=== PATIENT | male | born 1990 | race Caucasian/White ===

== ENCOUNTER 2018-03-26 15:14 | Emergency (ER) | payer SELFPAY ==
[~2018-03-26 15:14] MED LIST: KET10 PO; TRAM-420 PO
--- NOTE | 2018-03-26 15:22 | ER Report ---
History and Physical Time Seen By MD: 15:21 Hx. of Stated Complaint: PT REPORTS R UPPER DENTAL PAIN FOR 1 MONTH HPI/ROS CHIEF COMPLAINT: Dental pain HISTORY OF PRESENT ILLNESS: This is a 27-year-old male who presents to emergency department for dental pain. Patient states over the last month he's had intermittent right upper molar pain. Patient states he had something similar to this about a year ago was evaluated in the ED, did follow up with [facility] and had some dental work done. Patient states he is now able to afford some dental work however the pain over the last 3 days has increased somewhat that he decided to come in for further evaluation. Patient denies aches, chills, nausea, vomiting, chest pain or shortness of breath. REVIEW OF SYSTEMS: Respiratory: No cough, no dyspnea. Cardiovascular: No chest pain, no palpitations. Gastrointestinal: No vomiting, no abdominal pain. Musculoskeletal: No back pain. Dental: As above. Allergies: Coded Allergies: No Known Drug Allergies (Unverified , 03/26/18) Home Meds Active Scripts Amoxicillin/Pot Clav 875-125 Mg Tab (AUGMENTIN 875-125 TABLET) 1 Each Tablet, 1 TAB PO Q12H for 7 Days, #14 TAB 0 Refills Prov:MIGUEL A GALVEZ MARKET[employer] PROGRAMS SPECIALIST-BC 03/26/18 Discontinued Scripts Tramadol Hcl (TRAMADOL HCL) 50 Mg Tablet, 50-100 MG PO Q8H Y for PAIN, #20 TAB Prov:JOSIE LEW PA-C 06/11/17 Ketorolac Tromethamine (KETOROLAC TROMETHAMINE) 10 Mg Tab, 10 MG PO Q8H Y for PAIN, #15 TAB Prov:JOSIE LEW PA-C 06/11/17 Past Medical/Surgical History Patient has a past medical and surgical history of dental caries. Reviewed Nurses Notes: Yes Constitutional Vital Sign - Last 24 Hours 03/26/18 03/26/18 03/26/18 03/26/18 15:17 15:18 15:29 15:30 Temp 98.9 Pulse 44 55 Resp 16 B/P (MAP) 171/111 (131) 171/111 149/113 (125) Pulse Ox 96 97 O2 Delivery Room Air 03/26/18 03/26/18 03/26/18 15:44 15:59 16:06 Pulse 60 43 B/P (MAP) 148/105 (119) Pulse Ox 100 96 Physical Exam General Appearance: The patient is alert, has no immediate need for airway protection and no current signs of toxicity. Eyes: Pupils equal and round no injection. Dental: Right upper molar in good repair, no obvious signs of decay, no erythema or inflammation of the gingiva. No surrounding lymphadenopathy. Respiratory: Chest is non tender, lungs are clear to auscultation. Cardiac: regular rate and rhythm, no murmurs, clicks or rubs. Gastrointestinal: Abdomen is soft and non tender, no masses, bowel sounds normal. Musculoskeletal: Neck: Neck is supple and non tender. No lymphadenopathy. Extremities have full range of motion and are non tender. Skin: No rashes or lesions. DIFFERENTIAL DIAGNOSIS: After history and physical exam differential diagnosis was considered for dental caries, dental abscess and gingivitis. Medical Decision Making ED Course/Re-evaluation ED Course The patient was admitted to room. A history physical were obtained. Differential diagnoses were considered. The patient was complaining of significant right upper molar pain I did offer him a dental block which he greed to as noted below. The block was successful. After reevaluation the patient was resting comfortably in his bed. I did tell the patient I called in a prescription for Augmentin to the pharmacy he needs to pick this up and start taking the medication as directed. He can take ibuprofen and/or Tylenol as need for the aches and pains. It tell him that he needs to follow-up with his primary care provider and a dentist within the next 2-4 days. Patient was in agreement with this plan of care and discharged home. Procedure: Dental block. A buccal dental block was performed using a 0.25% bupivicaine. The teeth and gingiva were in good repair. The procedure was performed by myself. Decision to Disposition Date: March 26, 2018 Decision to Disposition Time: 16:14 Depart Departure Latest Vital Signs Vital Signs Date Time Temp Pulse Resp B/P (MAP) Pulse Ox O2 Delivery O2 Flow Rate FiO2 03/26/18 16:06 148/105 (119) 03/26/18 15:59 43 96 03/26/18 15:18 98.9 16 Room Air Impression: Primary Impression: Pain, dental Condition: Improved Disposition: HOME OR SELF-CARE New Scripts Amoxicillin/Pot Clav 875-125 Mg Tab (AUGMENTIN 875-125 TABLET) 1 Each Tablet 1 TAB PO Q12H for 7 Days, #14 TAB 0 Refills Prov: MIGUEL A GALVEZ 03/26/18 Patient Instructions: Dental Caries (DC) Additional Instructions: Drink plenty of water. Get plenty of rest. Take the antibiotics as prescribed. You can take [id number] ibuprofen or Tylenol as needed for pain. Follow-up with a dentist within the next 2-7 days. Return to the emergency department for any other concerns or worsening symptoms. MIGUEL A GALVEZ-JOSE March 26, 2018 15:22
[2018-03-26] MEDS ORDERED: ACETAMINOPHEN 500 MG TAB PO ONE (16:00)
[2018-03-26] MEDS ORDERED: AMOX-559 PO (16:01)
[2018-03-26 16:06] VITALS: BP 148/105
== END 2018-03-26 16:15 | disposition home or self-care (01) ==
LOC: ER 15:15
DX: K08.89 Other specified disorders of teeth and supporting structures (principal)
CPT/HCPCS: 99282

== ENCOUNTER 2018-10-30 19:35 | Emergency (ER) | payer SELFPAY ==
[~2018-10-30 19:35] MED LIST changes: +AMOX-559 PO
[2018-10-30 19:38] VITALS: BP 128/104
--- NOTE | 2018-10-30 19:49 | ER Report ---
History and Physical Time Seen By MD: 19:49 Hx. of Stated Complaint: TOP RT MOLAR PAIN. "PRETTY SURE IT'S INFECTED". BROKEN FOR A COUPLE MONTHS. UNABLE TO SEE A DENTIST HPI/ROS CHIEF COMPLAINT: Dental pain HISTORY OF PRESENT ILLNESS: 28-year-old male patient presents to emergency room with complaint and pain. Patient states that he has been having this pain intermittently for months. He states that this been going on since last time he was seen here in the emergency room. Patient states that he believes that his tooth is infected. He states that he was trying to clean it out with a toothpick. He states that while he was doing that that it seemed to go farther into the tooth then it should have. He states he did have significant amounts of pain at that time. Patient states he does have intermittent dental pain which can be very severe. He denies having any fevers, chills, nausea, vomiting or diarrhea. Patient states he's been able to eat and drink without any difficulties. Allergies: Coded Allergies: No Known Drug Allergies (Unverified , 10/30/18) Home Meds Active Scripts Amoxicillin 500 Mg Tab (AMOXICILLIN 500 MG TAB) 500 Mg Tablet, 1 TAB PO Q8H, #30 TAB Prov:MARIANO RAMOS [facility] 10/30/18 Diclofenac Sodium (DICLOFENAC SODIUM) 75 Mg Tablet.dr, 75 MG PO BID, #14 TAB Prov:MARIANO RAMOS [facility] 10/30/18 Discontinued Scripts Amoxicillin/Pot Clav 875-125 Mg Tab (AUGMENTIN 875-125 TABLET) 1 Each Tablet, 1 TAB PO Q12H for 7 Days, #14 TAB 0 Refills Prov:MIGUEL A GALVEZ [facility]- 03/26/18 Past Medical/Surgical History Patient has a past medical history of substance abuse. Patient has a surgical history of tonsillectomy. Reviewed Nurses Notes: Yes Hx Substance Use Disorder: Yes Hx Alcohol Use: No Constitutional Vital Sign - Last 24 Hours 10/30/18 19:38 Temp 97.8 Pulse 100 Resp 18 B/P (MAP) 128/104 Pulse Ox 97 O2 Delivery Room Air Physical Exam General Appearance: The patient is alert, has no immediate need for airway protection and no current signs of toxicity. ENT: Tympanic membranes are pearly-baca, auditory canals are patent, mixed mucous membranes moist. Patient does have significant tooth decay tooth #2 and 3. Respiratory: Chest is non tender, lungs are clear to auscultation. Cardiac: regular rate and rhythm DIFFERENTIAL DIAGNOSIS: After history and physical exam differential diagnosis was considered for cavity, dental infection, abscess. Medical Decision Making ED Course/Re-evaluation ED Course Patient was admitted and examined, history and physical were obtained. The differential diagnoses were considered. On examination lungs are clear, heart is regular in patient has significant decay to tooth #2 and 3. With this going on for months there is a good likelihood that he currently has an infection which is causing the pain to be worse. I do not believe that there is any reason for narcotic pain medication. We will go ahead and start him on antibiotics and have him follow-up with a dentist of his choosing. Patient also needs to see a dentist for evaluation and treatment of cavity whether it's getting the tooth removed or getting the cavity fixed. Patient verbalized understanding and agreement with plan. Decision to Disposition Date: Oct 30, 2018 Decision to Disposition Time: 20:03 Depart Departure Latest Vital Signs Vital Signs Date Time Temp Pulse Resp B/P (MAP) Pulse Ox O2 Delivery O2 Flow Rate FiO2 10/30/18 19:38 97.8 100 18 128/104 97 Room Air Impression: Primary Impression: Pain, dental Condition: Improved Disposition: HOME OR SELF-CARE New Scripts Amoxicillin 500 Mg Tab (AMOXICILLIN 500 MG TAB) 500 Mg Tablet 1 TAB PO Q8H, #30 TAB Prov: MARIANO RAMOS 10/30/18 Diclofenac Sodium (DICLOFENAC SODIUM) 75 Mg Tablet.dr 75 MG PO BID, #14 TAB Prov: MARIANO RAMOS 10/30/18 Patient Instructions: Toothache (ED) Additional Instructions: You may take Tylenol in addition to the diclofenac as needed for pain. Rinse mouth with warm salt water after every meal. Eat soft foods. Follow up with your dentist as soon as possible, call to make an appointment. Return to the ER if condition worsens. MARIANO RAMOS Oct 30, 2018 19:49
[2018-10-30] MEDS ORDERED: DICL-195 PO (20:04)
[2018-10-30] MEDS ORDERED: AMOX500T10 PO (20:04)
== END 2018-10-30 20:10 | disposition home or self-care (01) ==
LOC: ER 19:50
DX: K08.89 Other specified disorders of teeth and supporting structures (principal)
CPT/HCPCS: 99281

== ENCOUNTER 2018-12-12 14:14 | Emergency (ER) | payer SELFPAY ==
[~2018-12-12 14:14] MED LIST changes: +AMOX500T10 PO; +DICL-195 PO
--- NOTE | 2018-12-12 14:29 | ER Report ---
History and Physical Time Seen By MD: 14:25 HPI/ROS CHIEF COMPLAINT: Methamphetamine use HISTORY OF PRESENT ILLNESS: This is a 28-year-old male who presents to the emergency department for methamphetamine use. The patient uses methamphetamines and some cocaine about 3 days ago, patient is requesting a detox from both. The patient is not homicidal, not suicidal, has no other complaints, no fevers or chills. No chest pain or shortness of breath. No headaches or rashes. REVIEW OF SYSTEMS: Constitutional: No fever, no chills. Eyes: No discharge. ENT: No sore throat. Cardiovascular: No chest pain, no palpitations. Respiratory: No cough, no shortness of breath. Gastrointestinal: No abdominal pain, no vomiting. Genitourinary: No hematuria. Musculoskeletal: No back pain. Skin: No rashes. Neurological: No headache. Psychological: As above. Allergies: Coded Allergies: No Known Drug Allergies (Unverified , 10/30/18) Home Meds Active Scripts Amoxicillin 500 Mg Tab (AMOXICILLIN 500 MG TAB) 500 Mg Tablet, 1 TAB PO Q8H, #30 TAB Prov:MARIANO RAMOS 10/30/18 Diclofenac Sodium (DICLOFENAC SODIUM) 75 Mg Tablet.dr, 75 MG PO BID, #14 TAB Prov:MARIANO RAMOS 10/30/18 Past Medical/Surgical History The patient has a past medical and surgical history of tonsillectomy, polysubstance abuse. Reviewed Nurses Notes: Yes Hx Substance Use Disorder: Yes Hx Alcohol Use: No Constitutional Vital Sign - Last 24 Hours 12/12/18 14:33 Temp 99.1 Pulse 102 Resp 18 B/P (MAP) 148/99 Pulse Ox 95 O2 Delivery Room Air Physical Exam General Appearance: The patient is alert, has no immediate need for airway protection and no signs of toxicity. Eyes: Pupils equal and round no pallor or injection. ENT, Mouth: Mucous membranes are moist. Respiratory: There are no retractions, lungs are clear to auscultation. Cardiovascular: Regular rate and rhythm. Gastrointestinal: Abdomen is soft and non tender, no masses, bowel sounds normal. Neurological: Alert and oriented 4. Moving all extremities. Following all comma nds. No focal neuro deficits. Skin: Warm and dry, no rashes. Musculoskeletal: Neck is supple non tender. Extremities are nontender, nonswollen and have full range of motion. Psychological: Patient making intermittent eye contact, slow to respond to questions however he is forthcoming. Patient states he is wanting to detox from drugs before he moves back to [place]. DIFFERENTIAL DIAGNOSIS: After history and physical exam differential diagnosis was considered for suicidal ideation, homicidal ideation, polysubstance abuse. Medical Decision Making Data Points Result Diagram: 12/12/18 1551 12/12/18 1512 Laboratory Hematology Test 12/12/18 14:25 12/12/18 15:12 12/12/18 15:51 Urine Color Yellow Urine Clarity Clear Urine pH 6.0 pH (4.8-9.5) Urine Specific [place] 1.014 Urine Protein Negative mg/dL (NEGATIVE) Urine Glucose (UA) Negative mg/dL (NEGATIVE) Urine Ketones Negative mg/dL (NEGATIVE) Urine Blood Negative (NEGATIVE) Urine Nitrite Negative (NEGATIVE) Urine Bilirubin Negative (NEGATIVE) Urine Urobilinogen Negative mg/dL (0.2-1.9) Urine Leukocyte Esterase Negative (NEGATIVE) Urine RBC <1 /HPF (0-2/HPF) Urine WBC 2 /HPF (0-5/HPF) Urine Squamous Epithelial Cells Many /LPF (</=FEW) Urine Bacteria Negative /HPF (NONE-FEW) Urine Mucus None /HPF (NONE-FEW) Urine Opiates Screen Negative Urine Barbiturates Screen Negative Ur Tricyclic Antidepressants Screen Negative Urine Phencyclidine Screen Negative Urine Amphetamines Screen Negative Urine Benzodiazepines Screen Negative Urine Cocaine Screen Negative Urine Cannabinoids Screen Negative Sodium Level 138 mmol/L (137-145) Potassium Level 4.2 mmol/L (3.5-5.0) Chloride Level 106 mmol/L (98-107) Carbon Dioxide Level 25 mmol/L (22-30) Blood Urea Nitrogen 17 mg/dl (9-21) Creatinine 1.00 mg/dl (0.66-1.25) Glomerular Filtration Rate Calc > 60.0 Random Glucose 89 mg/dl (75-110) Calcium Level 9.2 mg/dl (8.4-10.2) Magnesium Level 2.1 mg/dl (1.7-2.2) Total Bilirubin 0.6 mg/dl (0.2-1.3) Aspartate Amino Transf (AST/SGOT) 35 U/L (0-35) Alanine Aminotransferase (ALT/SGPT) 33 U/L (0-56) Alkaline Phosphatase 56 U/L (0-126) Total Protein 6.7 g/dl (6.3-8.2) Albumin 3.9 g/dl (3.5-5.0) Salicylates Level < 10 mg/L Salicylate Last Dose Date unk Acetaminophen Level < 10 ug/ml Serum Alcohol < 10 mg/dl Red Blood Count 5.51 M/uL (4.00-5.60) Mean Corpuscular Volume 89.9 fL (80.0-96.0) Mean Corpuscular Hemoglobin 30.5 pg (26.0-33.0) Mean Corpuscular Hemoglobin Concent 33.9 g/dL (32.0-36.0) Red Cell Distribution Width 12.9 % (11.5-14.5) Mean Platelet Volume 8.4 fL (7.2-11.1) Neutrophils (%) (Auto) 52.4 % (39.4-72.5) Lymphocytes (%) (Auto) 34.7 % (17.6-49.6) Monocytes (%) (Auto) 7.9 % (4.1-12.4) Eosinophils (%) (Auto) 4.1 % (0.4-6.7) Basophils (%) (Auto) 0.9 % (0.3-1.4) Nucleated RBC Relative Count (auto) 0.1 /100WBC Neutrophils # (Auto) 4.3 K/uL (2.0-7.4) Lymphocytes # (Auto) 2.8 K/uL (1.3-3.6) Monocytes # (Auto) 0.6 K/uL (0.3-1.0) Eosinophils # (Auto) 0.3 K/uL (0.0-0.5) Basophils # (Auto) 0.1 K/uL (0.0-0.1) Nucleated RBC Absolute Count (auto) 0.00 K/uL Chemistry Test 12/12/18 14:25 12/12/18 15:12 12/12/18 15:51 Urine Color Yellow Urine Clarity Clear Urine pH 6.0 pH (4.8-9.5) Urine Specific [place] 1.014 Urine Protein Negative mg/dL (NEGATIVE) Urine Glucose (UA) Negative mg/dL (NEGATIVE) Urine Ketones Negative mg/dL (NEGATIVE) Urine Blood Negative (NEGATIVE) Urine Nitrite Negative (NEGATIVE) Urine Bilirubin Negative (NEGATIVE) Urine Urobilinogen Negative mg/dL (0.2-1.9) Urine Leukocyte Esterase Negative (NEGATIVE) Urine RBC <1 /HPF (0-2/HPF) Urine WBC 2 /HPF (0-5/HPF) Urine Squamous Epithelial Cells Many /LPF (</=FEW) Urine Bacteria Negative /HPF (NONE-FEW) Urine Mucus None /HPF (NONE-FEW) Urine Opiates Screen Negative Urine Barbiturates Screen Negative Ur Tricyclic Antidepressants Screen Negative Urine Phencyclidine Screen Negative Urine Amphetamines Screen Negative Urine Benzodiazepines Screen Negative Urine Cocaine Screen Negative Urine Cannabinoids Screen Negative Glomerular Filtration Rate Calc > 60.0 Calcium Level 9.2 mg/dl (8.4-10.2) Magnesium Level 2.1 mg/dl (1.7-2.2) Total Bilirubin 0.6 mg/dl (0.2-1.3) Aspartate Amino Transf (AST/SGOT) 35 U/L (0-35) Alanine Aminotransferase (ALT/SGPT) 33 U/L (0-56) Alkaline Phosphatase 56 U/L (0-126) Total Protein 6.7 g/dl (6.3-8.2) Albumin 3.9 g/dl (3.5-5.0) Salicylates Level < 10 mg/L Salicylate Last Dose Date unk Acetaminophen Level < 10 ug/ml Serum Alcohol < 10 mg/dl White Blood Count 8.1 k/uL (4.5-11.0) Red Blood Count 5.51 M/uL (4.00-5.60) Hemoglobin 16.8 g/dL (14.0-18.0) Hematocrit 49.5 % (42.0-52.0) Mean Corpuscular Volume 89.9 fL (80.0-96.0) Mean Corpuscular Hemoglobin 30.5 pg (26.0-33.0) Mean Corpuscular Hemoglobin Concent 33.9 g/dL (32.0-36.0) Red Cell Distribution Width 12.9 % (11.5-14.5) Platelet Count 285 K/uL (150-450) Mean Platelet Volume 8.4 fL (7.2-11.1) Neutrophils (%) (Auto) 52.4 % (39.4-72.5) Lymphocytes (%) (Auto) 34.7 % (17.6-49.6) Monocytes (%) (Auto) 7.9 % (4.1-12.4) Eosinophils (%) (Auto) 4.1 % (0.4-6.7) Basophils (%) (Auto) 0.9 % (0.3-1.4) Nucleated RBC Relative Count (auto) 0.1 /100WBC Neutrophils # (Auto) 4.3 K/uL (2.0-7.4) Lymphocytes # (Auto) 2.8 K/uL (1.3-3.6) Monocytes # (Auto) 0.6 K/uL (0.3-1.0) Eosinophils # (Auto) 0.3 K/uL (0.0-0.5) Basophils # (Auto) 0.1 K/uL (0.0-0.1) Nucleated RBC Absolute Count (auto) 0.00 K/uL Toxicology Test 12/12/18 14:25 12/12/18 15:12 Urine Opiates Screen Negative Urine Barbiturates Screen Negative Ur Tricyclic Antidepressants Screen Negative Urine Phencyclidine Screen Negative Urine Amphetamines Screen Negative Urine Benzodiazepines Screen Negative Urine Cocaine Screen Negative Urine Cannabinoids Screen Negative Salicylates Level < 10 mg/L Salicylate Last Dose Date unk Acetaminophen Level < 10 ug/ml Serum Alcohol < 10 mg/dl Urinalysis Test 12/12/18 14:25 Urine Color Yellow Urine Clarity Clear Urine pH 6.0 pH (4.8-9.5) Urine Specific [place] 1.014 Urine Protein Negative mg/dL (NEGATIVE) Urine Glucose (UA) Negative mg/dL (NEGATIVE) Urine Ketones Negative mg/dL (NEGATIVE) Urine Blood Negative (NEGATIVE) Urine Nitrite Negative (NEGATIVE) Urine Bilirubin Negative (NEGATIVE) Urine Urobilinogen Negative mg/dL (0.2-1.9) Urine Leukocyte Esterase Negative (NEGATIVE) Urine RBC <1 /HPF (0-2/HPF) Urine WBC 2 /HPF (0-5/HPF) Urine Squamous Epithelial Cells Many /LPF (</=FEW) Urine Bacteria Negative /HPF (NONE-FEW) Urine Mucus None /HPF (NONE-FEW) ED Course/Re-evaluation ED Course The patient was admitted to room. A history and physical were obtained. Differential diagnoses were considered. A CBC, CMP and psych panel were collected. Lab studies unremarkable. Negative UA, negative toxicology screen. I did have one of the [facility] techs come down and speak with the patient, unfortunately we are not able to admit the patient for detox from methamphetamine or cocaine use. Patient was not suicidal or homicidal and had no medical concerns. The patient was provided with information about a substance abuse center and [place] and was provided information for [facility], he will follow up with [facility] to see if he can get some assistance for the treatment program and [place]. I reviewed the lab studies with the patient. The patient is requesting to go home, patient had no other questions or concerns at this time, I did encourage the patient to return to the ER for any concerns or worsening symptoms. Patient exposed understanding and was discharged home. Decision to Disposition Date: Dec 12, 2018 Decision to Disposition Time: 15:53 Depart Departure Latest Vital Signs Vital Signs Date Time Temp Pulse Resp B/P (MAP) Pulse Ox O2 Delivery O2 Flow Rate FiO2 12/12/18 14:33 99.1 102 18 148/99 95 Room Air Impression: Primary Impression: Methamphetamine use Additional Impressions: Cocaine use Marijuana abuse Condition: Improved Disposition: HOME OR SELF-CARE Patient Instructions: Cocaine Abuse (ED), Methamphetamine Abuse (ED) Additional Instructions: Please follow-up with [facility] and the treatment Center in [place] for methamphetamine and cocaine treatment. Be sure to drink plenty of fluid. Get plenty of rest. Please return to the emergency department for any other concerns or worsening symptoms. 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
[2018-12-12] MEDS ORDERED: ACETAMINOPHEN 500 MG TAB PO ONE (15:00)
[2018-12-12 15:55] LABS: PLATELET COUNT, AUTOMATED 285 K/uL (150-450)
[2018-12-12 16:00] VITALS: BP 139/91
== END 2018-12-12 16:10 | disposition home or self-care (01) ==
LOC: ER 14:20
DX: F15.20 Other stimulant dependence, uncomplicated (principal); F14.20 Cocaine dependence, uncomplicated; F12.10 Cannabis abuse, uncomplicated
CPT/HCPCS: 80305; 80320; 80329; 81001; 82040; 82247; 82310; 82374; 82435; 82565; 82947; 83735; 84075; 84132; 84155; 84295; 84443; 84450; 84460; 84520; 85025; 99283